=== PATIENT | male | born 1940 | race Caucasian/White ===

== ENCOUNTER → 2016-07-30 | Outpatient (CLI) | payer OTHER, BC ==
[~2016-07-30] VITALS: Ht 172.7 cm; Wt 113.4 kg
[~2016-07-30] MED LIST: ASPIR 8181 MG PO; BETIMOL15 ML OP; LOPRESSOR100 M1 PO; SIMVASTATIN20 MG PO
--- NOTE | ~2016-07-30 | CATHLAB ---
[facility] [place] [address] INVASIVE PROCEDURE REPORT Name: DRISS AMADOR Orestes Room #: [facility]#: [id number] Admission: 07/30/16 Attend Phys: John Parker MD Discharge: Date of : 42 Date of Service: 07/30/16 0908 Report #: [id number] THIS REPORT FOR: //name// CC: Ángel Parker DATE OF SERVICE: 07/30/2016 INDICATION: Dyspnea, abnormal nuclear stress test. Full risks, benefits and alternatives of cardiac catheterization were explained to the patient. All questions were answered. Informed consent was obtained. A Barbeau test was performed on the right radial artery. The right wrist area was prepped and draped in a sterile manner. Lidocaine was given subcutaneously. A 5-[place]ine[place] sheath was inserted into the right radial artery via modified Seldinger technique. Nitroglycerin and verapamil was injected through the sheath. 5000 units of heparin was given through peripheral IV. CORONARY ANATOMY: The left main artery is a large caliber vessel with mild disease in the distal segment. The LAD is moderately calcified in the proximal segment. There is a severe stenosis in the proximal LAD, 70%. The mid and distal segments of the LAD have no flow-limiting lesions. The apical LAD wraps around the apex and terminates in the distal inferior wall. The left circumflex artery is a moderate to large size caliber vessel with mild disease proximally. The first obtuse marginal artery has an ostial 80% stenosis, best seen in the cranial views. The second OM is a small caliber vessel with an ostial 80% stenosis. There is a third obtuse marginal artery, of moderate size caliber with no flow-limiting lesions. The RCA is a dominant vessel with an eccentric, proximal stenosis, at least 80%. The distal RCA supplies a PDA and several posterolateral branches, with no flow-limiting lesions. A left ventriculogram was performed in the ANN projection revealing normal LV systolic function, ejection fraction of 60%. The LVEDP is approximately 25 mmHg. There is no gradient across the outflow tract. At the end of the procedure, the sheath was removed and a Vasc band was applied for hemostasis. [facility] [address] [place] [address] INVASIVE PROCEDURE REPORT Name: DRISS AMADOR Orestes Room #: [facility]#: [id number] Admission: 07/30/16 Attend Phys: John Parker MD Discharge: Date of : 42 Date of Service: 07/30/16 0908 Report #: [id number] IMPRESSION: 1. Severe 3-vessel disease. 2. Normal left ventricular systolic function. 3. Recommend surgical consultation. <ELECTRONICALLY SIGNED> By: John Parker MD 07/31/16 0848 0908 0942 John Parker MD /gucci
--- NOTE | ~2016-07-30 | EKG ---
[address] [place] [address] ELECTROCARDIOGRAM REPORT Name: DRISS AMADOR Room #: [facility]#: [id number] Admission: 07/30/16 Attend Phys: John Parker MD Discharge: Date of : 42 Report #: [id number] THIS REPORT FOR: //name// [facility] Test Date: 2016-07-30 Test Time: 07:25:50 Pat Name: DRISS AMADOR Department: Room: Gender: Physician Surgeon: Neptali DUGGAN : 1940 Requested By: John Parker Order Number: [id number] MD: José Miguel Lozada Measurements Intervals [place] Rate: 55 P: -6 SC: 178 QRS: 29 QRSD: 136 T: 29 QT: 445 QTc: 426 Interpretive Statements Sinus rhythm Atrial premature complex Right bundle branch block Compared to ECG 09/02/1994 10:31:00 Atrial premature complex(es) now present Right bundle-branch block now present Electronically Signed On 07-30-2016 8:46:50 CDT by José Miguel Lozada [email or web address] <ELECTRONICALLY SIGNED> By: José Miguel Lozada MD, [facility] 07/30/16 0846 José Miguel Lozada MD, [facility] /EPI
[2016-07-30 07:44] LABS: HEMATOCRIT 42.4 % (42.0-52.0); MCH 30.3 pg (26.0-34.0); MCV 91.7 fL (80.0-100.0); RBC 4.62 mil/uL (4.50-6.00); RDW 13.4 % (10.5-14.5); WBC 5.7 thou/uL (4.0-11.0)
[2016-07-30 07:54] VITALS: BP 162/83
[2016-07-30 07:56] LABS: CALCIUM 9.1 mg/dL (8.5-10.1); CREATININE 1.2 mg/dL (0.7-1.3); POTASSIUM 4.1 mmol/L (3.5-5.1)
[2016-07-30 08:54] LABS: CHOLESTEROL 169 mg/dL (<200); HDL CHOLESTEROL 42 mg/dL (>40); LDL CHOLESTEROL 106 mg/dL (<100); TRIGLYCERIDE 106 mg/dL (<150); VLDL 21 mg/dL (<40)
== END | disposition home or self-care (01) ==
LOC: NUC 07-23 07:44 → CATH 06:29 → EDSTATUS 07:38 → CATH 11:05
PROVIDERS: Internal Medicine Cardiovascular Disease
DX: I25.10 Atherosclerotic heart disease of native coronary artery without angina pectoris (principal); I10 Essential (primary) hypertension; E78.00 Pure hypercholesterolemia, unspecified; E66.09 Other obesity due to excess calories; K21.9 Gastro-esophageal reflux disease without esophagitis; Z87.891 Personal history of nicotine dependence; Z98.890 Other specified postprocedural states; Z98.41 Cataract extraction status, right eye; Z98.42 Cataract extraction status, left eye; Z96.653 Presence of artificial knee joint, bilateral; Z79.82 Long term (current) use of aspirin; Z79.899 Other long term (current) drug therapy